=== PATIENT | female | born 1965 | race Caucasian/White ===

== ENCOUNTER 2018-11-13 08:56 | Day surgery (SDC) | payer OTHER ==
[~2018-11-13] VITALS: Ht 160 cm; Wt 73.5 kg
[2018-11-13] MEDS ORDERED: omeprazole (09:44)
[2018-11-13 09:48] VITALS: Ht 160 cm; Wt 73.5 kg
[2018-11-13 09:49] VITALS: BP 114/71; PULSE 57; RESP 18
[2018-11-13 10:26] VITALS: BP 118/67; PULSE 87; RESP 20
[2018-11-13] MEDS ORDERED: MIDAZOLAM 1 MG/ML 2 ML INJ ONE ×2 (10:26)
[2018-11-13] MEDS ORDERED: FENTAnyl 50 MCG/ML VIAL ONE (10:26)
[2018-11-13 10:31] VITALS: BP 122/66; PULSE 88; RESP 20
[2018-11-13 10:36] VITALS: BP 119/69; PULSE 90; RESP 18
== END 2018-11-13 12:16 | disposition home or self-care (01) ==
LOC: GIL 08:56
PROVIDERS: ATTEND Internal Medicine Gastroenterology
DX: K92.1 Melena (principal); K64.8 Other hemorrhoids; K21.9 Gastro-esophageal reflux disease without esophagitis
CPT/HCPCS: 43239; 45378; 88305; 88312; J2250; J3010; Z7610